=== PATIENT | male | born 1970 | race American Indian/Alaskan Native ===

== ENCOUNTER 2018-12-05 07:40 | Emergency (ER) | payer OTHER ==
[2018-12-05 07:48] VITALS: RESP 18
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
[2018-12-05 09:48] VITALS: BP 142/100; PULSE 85; TEMP 98.3
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
[2018-12-05 09:55] VITALS: O2SAT 96
[2018-12-05] MEDS ORDERED: Lidocaine 5% Patch TD STA (10:02)
[2018-12-05] MEDS ORDERED: Lidocaine 5% Patch TD ONE (10:43)
== END 2018-12-05 10:52 | disposition home or self-care (01) ==
LOC: C.ER 07:40
DX: S42.122A Displaced fracture of acromial process, left shoulder, initial encounter for closed fracture (principal); V49.9XXA Car occupant (driver) (passenger) injured in unspecified traffic accident, initial encounter; M54.9 Dorsalgia, unspecified; M25.511 Pain in right shoulder; M25.512 Pain in left shoulder; I10 Essential (primary) hypertension